=== PATIENT | female | born 1955 | race Caucasian/White ===

== ENCOUNTER 2022-04-03 09:12 | Emergency (ER) | payer MEDICARE, OTHER ==
[2022-04-03] MEDS ORDERED: Sodium Chloride 0.9% 1,000 ML IV SCH (10:15)
[2022-04-03 10:28] LABS: ESTIMATED GFR 71 mL/min (>60)
[2022-04-03] MEDS ORDERED: Meclizine 25 MG Tab PO ONE (10:58)
== END 2022-04-03 11:49 | disposition home or self-care (01) ==
LOC: JP.ED 09:12
DX: E86.0 Dehydration (principal); T50.Z95A Adverse effect of other vaccines and biological substances, initial encounter
CPT/HCPCS: 36415; 80053; 81001; 83550; 84443; 85025; 87086; 87088; 87186; 93005; 96360; 99284; A9270; J7030